=== PATIENT | female | born 1970 | race Two or more races ===

== ENCOUNTER 2024-06-23 22:07 | Emergency (ER) | payer BC ==
[~2024-06-23] VITALS: Ht 167.6 cm; Wt 86.2 kg
[2024-06-23] MEDS ORDERED: CRESTOR40 MG PO (22:37)
[2024-06-23] MEDS ORDERED: ALTACE10 MG PO (22:37)
[2024-06-23 22:38] VITALS: BP 116/77; O2SAT 96
[2024-06-23] MEDS ORDERED: LEVO-T100 MCG PO (22:38)
[2024-06-23] MEDS ORDERED: OZEMPIC1 MG/0.71 SQ (22:38)
[2024-06-24] MEDS ORDERED: KETOROLAC TROMETHAMINE 10 MG TABLET PO STA (00:52)
[2024-06-24] MEDS ORDERED: KETOROLAC TROMETHAMINE 10 MG TABLET PO ONE (01:19)
[2024-06-24] MEDS ORDERED: CEPHALEXIN500 MG PO (02:06)
[2024-06-24] MEDS ORDERED: KETO10TA2 PO (02:06)
== END 2024-06-24 03:22 ==
LOC: ER 22:10
DX: S41.111A Laceration without foreign body of right upper arm, initial encounter (principal); W18.39XA Other fall on same level, initial encounter; Y93.11 Activity, swimming; Y92.89 Other specified places as the place of occurrence of the external cause; Y99.9 Unspecified external cause status